=== PATIENT | female | born 1940 | race Caucasian/White ===

== ENCOUNTER 2016-10-15 13:48 | Day surgery (SDC) | payer MEDICARE, OTHER ==
[~2016-10-15 13:48] MED LIST: APRACLONIDINE HCL 50 DROP BTL LEFTEYE PRN; PHENYLEPHRINE HCL 50 DROP BTL LEFTEYE PRN; TROPICAMIDE 150 DROP BTL LEFTEYE PRN
--- OUTSIDE RECORDS SUMMARY | 2016-10-15 13:51 | XMS REPORT | Continuity of Care Document ---
:1940 Author Organization [facility] ([facility]) Address [place] [address] Phone [phone] Care Team Providers Name Role Phone Katia Orourke Primary Care Provider [phone] Source Comments This disclosure is being made pursuant to the Care Everywhere program, applicable federal and state laws, and may not contain all informaitonavailable regarding this patient.[facility] ([facility]) Active Allergies and Adverse Reactions No Known Allergies Current Medications Prescription Sig. Disp. Refills Start Date End Date Status fluticasone 50 Use 2 Sprays into Active mcg/Actuation nasal spray both nostrils daily. gabapentin 300 mg capsule Take 300 mg by Active mouth 3 times daily. cyclobenzaprine 10 mg Take 10 mg by Active tablet mouth 3 times daily as needed. LORazepam 0.5 mg tablet Take 0.5 mg by Active mouth every 4 hours as needed. levothyroxine 75 mcg Take 75 mcg by Active tablet mouth every morning before breakfast. pancrelipase (ZENPEP Take 1 capsule by Active 5,000) 5,000-17,000 mouth 3 times -27,000 unit EC capsule daily with meals. venlafaxine 100 mg tablet Take 100 mg by Active mouth 3 times daily. aspirin 81 mg EC tablet Take 81 mg by Active mouth daily. metoPROLol succinate 50 mg Take 50 mg by Active XL tablet mouth daily. nitroglycerin 0.[address] 0.3 mg under Active tablet the tongue every 5 minutes as needed. Maximum of 3 tablets in 15 minutes. Active Problems Problem Noted Date Atypical chest pain 05/01/2016 Overview: CARDIOVASCULAR PROCEDURES STRESS MPI: ([place]) 2005,2007,2011 Normal MPI: EF 67%. No ischemia. Normal wall motion. 03/21/2016 Hypertension Depression Anxiety Hypothyroid Social History Tobacco Use Types Packs/Day Years Used Date Never Smoker Last Filed Vital Signs Vital Sign Reading Time Taken Blood Pressure 124/78 05/01/2016 1:19 PM CDT Pulse 64 05/01/2016 1:19 PM CDT Temperature - - Respiratory Rate - - Height 1.524 m (5') 05/01/2016 1:19 PM CDT Weight 71.668 kg (158 lb) 05/01/2016 1:19 PM CDT Body Mass Index 30.86 05/01/2016 1:19 PM CDT Oxygen Saturation - - Plan of Care Health Maintenance Due Date Last Done Comments Hepatitis B Vaccine (1 of 3 - Primary Series) 1940 Tdap Vaccine 1952 Lipid Disorder Screening 12/16/1959 Td Vaccine 12/16/1959 Mammogram 1981 Colonoscopy 1991 Zoster Vaccine 2001 Osteoporosis Screening (DXA Bone Density) 2006 Pneumococcal Vaccine (1 of 2 - PCV13) 2006 Influenza Vaccine: Seasonal (#1) 01/30/2016 Results from Last 3 Months Not on file
[2016-10-15 15:17] VITALS: BP 146/83
== END 2016-10-15 13:49 | disposition home or self-care (01) ==
LOC: AMB 13:48
PROVIDERS: ATTEND Ophthalmology
PROC: 085K3ZZ Destruction of Left Lens, Percutaneous Approach (ICD-10-PCS; principal; 2016-10-15 12:40)
DX: H26.40 Unspecified secondary cataract (principal); Z68.30 Body mass index [BMI] 30.0-30.9, adult

== ENCOUNTER 2016-12-13 00:35 | Emergency (ER) | payer MEDICARE, OTHER ==
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
[2016-12-13 00:57] LABS: Urine Bilirubin 1 mg/dl (NEGATIVE); Urine Blood 250 /ul (NEGATIVE); Urine Ketone 5 mg/dL (NEGATIVE); Urine Protein >=300 mg/dL (NEGATIVE); Urine Specific Gravity >=1.030 SP.GR. (1.005-1.010); Urine Urobilinogen Normal (NORMAL); Urine pH 5.5 pH (5.0-7.0)
[2016-12-13 01:00] LABS: Urine Appearance Cloudy; Urine Bacteria QNS; Urine Color Brown; Urine Nitrite Positive (NEGATIVE); Urine RBC QNS /hpf (0-5); Urine WBC QNS /hpf (0-5)
[2016-12-13] MEDS ORDERED: SULFAMETHOXAZOLE/TRIMETHOPRIM 1 TAB TABLET PO ONE (01:08)
[2016-12-13] MEDS ORDERED: PHENAZOPYRIDINE HCL 100 MG TABLET PO ONE (01:08)
[2016-12-13] MEDS ORDERED: PHENAZOPYRIDINE HCL 100 MG TABLET ONE (01:12)
[2016-12-13] MEDS ORDERED: SULFAMETHOXAZOLE/TRIMETHOPRIM 1 TAB TABLET ONE (01:12)
[2016-12-13 01:24] VITALS: BP 136/77
--- OUTSIDE RECORDS SUMMARY | 2016-12-13 02:10 | XMS REPORT | Continuity of Care Document ---
:1940 Author Organization [facility] ([facility]) [place] [address] Phone [phone] Care Team Providers Name Role Phone Katia Orourke Primary Care Provider [phone] Source Comments This disclosure is being made pursuant to the Care Everywhere program, applicable federal and state laws, and may not contain all informaitonavailable regarding this patient.[facility] ([facility]) Active Allergies and Adverse Reactions No [...]
== END 2016-12-13 01:19 | disposition home or self-care (01) ==
LOC: ER 00:35
DX: N30.00 Acute cystitis without hematuria (principal)

== ENCOUNTER 2017-01-07 21:24 | Emergency (ER) | payer MEDICARE, OTHER ==
[2017-01-07 21:31] VITALS: BP 124/87
[2017-01-07] MEDS ORDERED: diphenhydrAMINE HCL 50 MG/ML VIAL ONE (21:36)
[2017-01-07] MEDS ORDERED: METHYLPREDNISOLONE SOD SUCC/PF 40 MG/ML VIAL ONE (21:36)
[2017-01-07] MEDS ORDERED: diphenhydrAMINE HCL 50 MG/ML VIAL IM ONE (21:38)
[2017-01-07] MEDS ORDERED: METHYLPREDNISOLONE ACETATE 80 MG/ML VIAL IM ONE (21:38)
[2017-01-07] MEDS ORDERED: METHYLPREDNISOLONE SOD SUCC/PF 40 MG/ML VIAL IM ONE (21:41)
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
== END 2017-01-07 22:10 | disposition home or self-care (01) ==
LOC: ER 21:24
DX: T63.481A Toxic effect of venom of other arthropod, accidental (unintentional), initial encounter (principal); Y92.9 Unspecified place or not applicable; E03.9 Hypothyroidism, unspecified; F41.8 Other specified anxiety disorders

== ENCOUNTER 2018-08-02 23:49 | Observation (INO) ==
[2018-08-03] MEDS ORDERED: ASPIRIN 81 MG TAB.CHEW PO ONE
[2018-08-03] MEDS ORDERED: NITROGLYCERIN 0.4 MG/TAB BTL SL ONE (00:01)
[2018-08-03] MEDS ORDERED: ASPIRIN 81 MG TAB.CHEW ONE (00:02)
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
[2018-08-03 00:14] LABS: Hematocrit 40.1 % (37.0-47.0); Hemoglobin 13.1 gm/dL (12.5-16.0); Mean Cell Volume 96.4 fl (78-100); Mean Corpuscular Hemoglobin 31.5 pg (27-31); Mean Corpuscular Hgb Conc 32.7 g/dl (32-36); Mean Platelet Volume 9.1 fl (8-12.5); Neutrophil # 6.7 K/mm3 (1.3-6.0); Platelet Count 319 K/mm3 (150-450); Red Blood Count 4.16 M/mm3 (4.2-5.4); Red Cell Distribution Width 12.5 % (11.5-14.0); White Blood Count 11.2 K/mm3 (4.0-10.5)
[2018-08-03] MEDS ORDERED: SUCRALFATE 1 G/10 ML UDC PO ONE (00:20)
[2018-08-03] MEDS ORDERED: LIDOCAINE HCL 20 ML UDC PO ONE (00:20)
[2018-08-03] MEDS ORDERED: MAG HYDROX/ALUMINUM HYD/SIMETH 30 ML UDC PO ONE (00:20)
[2018-08-03 00:32] LABS: Troponin I Less than 0.017 ng/mL (0.00-0.10)
[2018-08-03 00:34] LABS: ALT 13 U/L (19-67); AST 16 U/L (0-48); Albumin * 3.8 gm/dl (3.4-5.0); Alkaline Phosphatase * 67 U/L (50-170); Anion Gap 15.4 mmol/L (6.8-13.8); BNP * 78 pg/mL (5-550); BUN/Creatinine Ratio 24.7 (9.0-21.6); Bilirubin, Total 0.2 mg/dL (0.0-1.1); Blood Urea Nitrogen 19 mg/dL (3-23); Calcium * 9.2 mg/dL (7.9-10.9); Carbon Dioxide 27.1 mmol/L (24-32.6); Chloride 103 mmol/L (97-106); Glucose * 116 mg/dL (70-110); Potassium 3.5 mmol/L (3.4-4.6); Sodium 142 mmol/L (132-142); Total Protein 7.3 gm/dL (6.2-8.2)
[2018-08-03] MEDS ORDERED: NITROGLYCERIN 0.4 MG/TAB BTL SL PRN (01:42)
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
--- NOTE | 2018-08-03 11:48 | DS ---
(1) Chest pain Problem: Acute Qualifiers: Chest pain type: unspecified Qualified Code(s): R07.9 - Chest pain, unspecified Description of Stay: Shruthi is a 77 yo female admitted to observation for chest pain. Her initial work up in the ER was negative for acute SC. She was admitted to observation on telemetry, had repeat troponins, and EKG. There was no evidence of myocardial injury. She reports being under more stress than usual. She does not want anything adjusted at this time. I do not believe chest pain was heart related. She will be discharged to home today and will follow up with Dr. Orourke in about a week. Procedures Performed: none Results and Findings: Lab Pending Results 08/03/18 00:05: WBC 11.2 H, RBC 4.16 L, Hgb 13.1, Hct 40.1, MCV 96.4, MCH 31.5 H, MCHC 32.7, RDW 12.5, Plt Count 319, MPV 9.1, Immature Gran % (Auto) 0.40, Immature Gran # (Auto) 0.04 H, Neutrophils % 60.0, Lymphocytes % 29.0, Monocytes % 7.2, Eosinophils % 2.9, Basophils % 0.5, Nucleated RBC % 0.0, Neutrophils # 6.7 H, Lymphocytes # 3.24, Monocytes # 0.8, Eosinophils # 0.3, Absolute Basophils 0.1 08/03/18 00:05: Sodium 142, Plasma Sodium 142, Potassium 3.5, Chloride 103, Carbon Dioxide 27.1, Anion Gap 15.4 H, BUN 19, Creatinine 0.77, Est GFR (Non-Af Amer) 77, BUN/Creatinine Ratio 24.7 H, Random Glucose 116 H, Calcium 9.2, Calcium Adj for Albumin 9.0, Total Bilirubin 0.2, AST 16, ALT 13 L, Alkaline Phosphatase 67, Troponin I Less than 0.017, B-Natriuretic Peptide 78, Total Protein 7.3, Albumin 3.8 08/03/18 00:05: D-Dimer 0.90 H 08/03/18 06:20: Troponin I Less than 0.017 Discharge Location: Home Disposition: Home self-care Condition: Good Discharge Activity: Activity as tolerated Discharge Diet: General/regular food Referrals: Libarnes,Roseller, MD [Primary Care Provider] - One Week Problem Oriented Discharge Instructions to Patient/Family: Chest Pain Observation Complete Home Medications List: Complete Home Medication List: Fluticasone Propionate [Flonase] 50 mcg NS PRN PRN 03/27/13 LORazepam [Ativan] 0.5 mg PO DAILY PRN 06/15/14 Nitroglycerin 0.3 mg SUBLINGUAL Q5MIN PRN #14 tab.subl 03/21/16 Aspirin [Aspirin Chewable] 81 mg PO DAILY 08/03/18 Citalopram Hydrobromide [Celexa] 20 mg PO DAILY 08/03/18 Lamotrigine [Lamictal] 100 mg PO DAILY 08/03/18
[2018-08-03 13:48] VITALS: BP 136/78
== END 2018-08-03 12:30 | disposition home or self-care (01) ==
LOC: ER 23:49 → MS 23:49
PROVIDERS: ADMIT Family Medicine; ATTEND Internal Medicine
DX: R07.9 Chest pain, unspecified
CPT/HCPCS: 36415; 71020; 71046; 71275; 80053; 83519; 83880; 84484; 85025; 85379; 93005; 99285; G0378